=== PATIENT | female | born 1940 | race Caucasian/White ===

== ENCOUNTER → 2016-12-26 | Outpatient (CLI) | payer OTHER ==
[~2016-12-26] MED LIST: CGN1; CRG40; EZET10TA38; FSM70; LOXAPINE SUCCINATE; SERT-234; TEMA15CA4; XNX25
== END | disposition home or self-care (01) ==
LOC: C.LABPVFM 11:19
PROVIDERS: ATTEND Family Medicine
DX: L72.9 Follicular cyst of the skin and subcutaneous tissue, unspecified (principal)

== ENCOUNTER → 2017-01-23 | Outpatient (CLI) | payer OTHER ==
--- NOTE | 2017-01-23 09:29 | DIAGNOSTIC IMAGING REPORT ---
RIGHT KNEE 3 VIEWS HISTORY: M25.562 Knee pain, leftR76.8 LANCE [id number] Generalized osteo Right COMPARISON: None. FINDINGS: There is no fracture or dislocation. Small knee effusion. Severe cartilage space narrowing with [id number] articulation at the medial compartment. There is also mild patellofemoral osteoarthritis. The bones are osteopenic. Possible 1 cm subchondral lucency within the medial aspect of the medial femoral condyle. No radiopaque foreign bodies. IMPRESSION: 1. Small knee effusion. 2. Severe osteoarthritis at the medial compartment with [id number] reticulation. 3. Possible 1 cm subchondral lucency within the medial femoral condyle. This raises the possibility of spontaneous osteonecrosis or an osteochondral defect. This could be confirmed with follow-up nonemergent MRI if clinically warranted. Electronically signed by: Last Marin M.D. 01/23/2017 9:28 AM Dictated Date/Time: 01/23/2017 9:25 AM
--- NOTE | 2017-01-24 11:34 | CODING QUERY NO DIAGNOSIS ---
TREATMENT RENDERED WITHOUT A DIAGNOSIS Dr. Robin, To promote full compliance with coding requirements relating to patient care, physician participation is requested in all cases of manager harbor uncertainty. Please assist us with providing a diagnosis/symptom for the test(s) below: A diagnosis/symptom was not documented on your Order. A valid diagnosis/symptom is required to bill all insurances. Please remember that we are unable to code a diagnosis of rule out, probable, possible, questionable, or suspected. Tests that require a diagnosis: * KNEE X-RAY 3 VIEWS DIAGNOSIS: DATE OF SERVICE: 01/23/17 Please clarify DX. Order says Left Knee pain but X-Ray is for Right Knee. Provider Signature: Date: Thank you Luc Snyder [facility] Information Management Once completed, please kindly fax back to [phone] For questions please call [phone]
[2017-01-26 02:56] LABS: ANTI-CENTROMERE AB <1.0 NEG AI (<1.0 NEG); ANTI-SS-A 3.2 POS AI (<1.0 NEG); ANTI-SS-B <1.0 NEG AI (<1.0 NEG); DNA ds CRITHIDIA NEGATIVE (NEGATIVE); Sm Antibody <1.0 NEG AI (<1.0 NEG)
== END | disposition home or self-care (01) ==
LOC: C.RAD1850 09:11
PROVIDERS: ATTEND Internal Medicine Rheumatology
DX: M17.11 Unilateral primary osteoarthritis, right knee (principal); M25.561 Pain in right knee; M25.562 Pain in left knee; R76.8 Other specified abnormal immunological findings in serum; M15.9 Polyosteoarthritis, unspecified; R70.0 Elevated erythrocyte sedimentation rate

== ENCOUNTER → 2017-02-25 | Outpatient (CLI) | payer OTHER ==
--- NOTE | 2017-02-25 14:55 | MAMMOGRAPHY REPORT ---
BILATERAL DIGITAL SCREENING MAMMOGRAM WITH CAD: 02/25/2017 CLINICAL HISTORY: Routine screening. Patient has no complaints. TECHNIQUE: Bilateral CC and MLO views were obtained. Current study was also evaluated with a Compute r Aided Detection (CAD) system. COMPARISON: Comparison is made to exams dated: 02/22/2016 mammogram, 02/18/2015 mammogram, 02/17/2014 m ammogram, 01/06/2013 mammogram, 06/14/2011 mammogram, and 06/13/2010 mammogram - [facility] enter. BREAST COMPOSITION: The tissue of both breasts is heterogeneously dense, which may obscure small mas ses. FINDINGS: There are scattered and grouped round and punctate microcalcifications, stable in each [address]. No new suspicious mass, architectural distortion or cluster of microcalcifications is seen. IMPRESSION: ACR BI-RADS CATEGORY 1: NEGATIVE There is no mammographic evidence of malignancy. A 1 year screening mammogram is recommended. The pa tient will receive written notification of the results. Approximately 10% of breast cancers are not detected with mammography. A negative mammographic report should not delay biopsy if a clinically suggestive mass is present. Jen Mantilla M.D. ay/:02/25/2017 11:49:12 Wood Car Builder: Gabrielle Kong RT(R)(M), [facility] letter sent: Normal 1/2 BI-RADS Code: ACR BI-RADS Category 1: Negative
== END | disposition home or self-care (01) ==
LOC: C.MAMM 09:02
PROVIDERS: ATTEND Family Medicine
DX: Z12.31 Encounter for screening mammogram for malignant neoplasm of breast (principal)

== ENCOUNTER → 2017-09-17 | Day surgery (SDC) | payer OTHER ==
[2017-09-10 09:46] VITALS: Ht 162.6 cm; Wt 77.3 kg
[~2017-09-17] VITALS: Ht 162.6 cm; Wt 77.3 kg
[~2017-09-17] MED LIST changes: +ASPI81TA28 PO; +ATEN50TA8 PO; +ATOR-22 PO; +ATROPINE SULFATE 0.1 MG/ML 5ML SYR IV PRN; +BENZ0.5T28 PO; +BUPIVACAINE 0.5 % 5 MG/1 ML PF 10ML VIAL ONE; +CEFAZOLIN 1000MG IV PUSH 5 ML IV SCH; -CGN1; -CRG40; -EZET10TA38; +FENTANYL CITRATE INJ 50 MCG/1 ML 2 ML VIAL ONE; -FSM70; +LACTATED RINGER'S 1000ML 1,000 ML IV SCH; +LIDOCAINE HCL 1% 20 ML VIAL ONE; +LOXA10CA PO; +LOXA25CA PO; -LOXAPINE SUCCINATE; +MIDAZOLAM HCL 1 MG/ML 2ML VIAL ONE; +ONDANSETRON INJ 2 MG/ML 2 ML VIAL IV PRN; +OXYCODONE/ACETAMINOPHEN 5-325 TAB PO PRN; -SERT-234; +SERT-234 PO; +SODIUM CHLORIDE 0.9% 1000ML 1,000 ML IV SCH; -TEMA15CA4; +TRAM-10 PO; -XNX25; +XNX25 PO
--- NOTE | 2017-09-17 07:48 | History & Physical Bridge - SC ---
H&P Re-Evaluation Bridge Note: I have examined the patient, reviewed the History & Physical and in the interval since the performance of the History & Physical I have noted the following changes of clinical significance: No changes noted
--- NOTE | 2017-09-17 08:42 | [facility] Post Operative Brief Note ---
Immediate Operative Summary Operative Date Sep 17, 2017. Pre-Operative Diagnosis Right Long Finger Ganglion of Joint, Pain Post-Operative Diagnosis same as pre op Procedure(s) Performed Right Long Finger Cyst Excision Surgeon Dr Dyson Anhydrous Ammonia Production Supervisor Surgeon(s) MOHIT Cheatham Estimated Blood Loss 0ml Findings ABOVE Specimens none Anesthesia LOCAL IV SEDATION Complication(s) None Disposition
[2017-09-17 08:45] VITALS: TEMP 36.7
--- NOTE | 2017-09-17 08:45 | Discharge Instructions-SurgCtr ---
Discharge Instructions Date of Service Sep 17, 2017. Visit Reason for Visit: Right Long Finger Ganglion Of Joint, Pain Discharge Discharge Diagnosis / Problem: SAME ABOVE Discharge Goals Goal(s): Decrease discomfort, Improve function Activity Recommendations Activity Limitations: as noted below Lifting Limitations: gradually increase as tolerated, until after follow-up appointment Shower/Bathe: tomorrow Anesthesia . Post Anesthesia Instructions: If you have had General Anesthesia or IV Sedation: * Do not drive today. * Resume driving when surgeon permits. * Do not make important decisions or sign legal documents today. * Call surgeon for: 1. Temperature elevations greater than 101 degrees F. 2. Uncontrollable pain. 3. Excessive bleeding. 4. Persistent nausea and vomiting. 5. Medication intolerance (nausea, vomiting or rash). * For nausea and vomiting use only clear liquids such as: tea, soda, bouillon until nausea subsides, then gradually increase diet as tolerated. * If you have any concerns or questions, call your surgeon's office. If physician is unavailable and it is an emergency, call 911 or go to the nearest emergency room. . Instructions / Follow-Up Instructions / Follow-Up MEDICATIONS: * Resume previous medications unless instructed otherwise by your surgeon. * Always take pain medication on a full stomach or with food to avoid upset stomach. * Do not drink alcohol or drive while taking narcotics. * Ibuprofen or Tylenol may be taken if narcotic not needed. SPECIAL CARE INSTRUCTIONS: __ None _X_ Keep extremity elevated and iced x 48 hours; apply ice 20-30 minutes 8-10 times/day. May remove at night. __ Sling __24 hrs/day __ Remove at night __ Shoulder Immobilizer __ 24 hrs/day __ Remove at night _X_ Dressing __ Maintain until seen in office, may shower with plastic over site _X_ Remove dressings in 24-48 hours and then may shower _X_ Cover incisions with band-aids after showering __ Do not remove steri-strips Call physician if chills or temperature rises above 102 degrees or pain unrelieved by prescribed pain medications at . . Diet Recommendations Home Diet: resume previous diet Procedures Procedures Performed: Right Long Finger Cyst Excision Pending Studies Studies pending at discharge: no Medical Emergencies . Who to Call and When: Medical Emergencies: If at any time you feel your situation is an emergency, please call 911 immediately. . Non-Emergent Contact Non-Emergency issues call your: Primary Care Provider . . "Provider Documentation" section prepared by Ricardo Rehman. .
--- NOTE | 2017-09-17 09:00 | OPERATIVE REPORT ---
DATE OF OPERATION: 09/17/2017 PREOPERATIVE DIAGNOSIS: Painful large mucous cyst, dorsal aspect DIP joint, right long finger. POSTOPERATIVE DIAGNOSIS: Same. PROCEDURE: Removal mucocyst DIP joint, right long finger. SURGEON: Og Dyson MD. AIRCRAFT RESTORER: Ricardo Rehman PA-C. ANESTHESIOLOGIST: Luc Jerry MD. ANESTHESIA: Local with IV sedation. DRAINS: None. COMPLICATIONS: None. CONDITION: The patient tolerated the procedure well and returned to the recovery room in apparent satisfactory condition. INDICATIONS FOR SURGERY: Jodee is a 77-year-old female who has had pain and discomfort secondary to a mucous cyst on the dorsal aspect of the DIP joint of her right long finger. It is pretty large in size. The skin was thin. We talked about taking and removing it and possibly recurrence and then problems with wound closure because of the consistency of her skin. DESCRIPTION OF PROCEDURE: The patient was taken to the OR at which time she was placed supine on the operating table, given IV sedation. A digital block in the finger was done by myself. Then wee prepped and draped the hand in usual sterile fashion for surgery. We used a Ryder drain for a tourniquet and exsanguinated the finger. We then made an oblique incision over the cyst with loupe magnification. Immediately we had fluid come out. Once we got all that out, we then removed the cyst in whole. It was pretty good size, about the size of a half of a peanut. We did cut back some of the skin, irrigated it nicely and then we went ahead and closed it with interrupted 4-0 nylon sutures. She was placed in a sterile dressing of Xeroform, 2 x 2, and a Coban and returned to recovery in apparent satisfactory condition. I attest to the content of the Intraoperative Record and any orders documented therein. Any exception s are noted below.
--- NOTE | 2017-09-17 09:07 | Anesthesia Progress Nt - [facility] ---
Anesthesia Post Op Note Date & Time Sep 17, 2017 at 09:07 Vital Signs Pain Intensity: 0 Vital Signs Past 12 Hours Date Time Temp Pulse Resp B/P (MAP) Pulse Ox O2 Delivery O2 Flow Rate FiO2 09/17/17 08:45 36.7 67 18 117/72 (87) 93 Room Air 09/17/17 06:58 36.5 66 16 133/91 (105) 96 Room Air Notes Mental Status: alert / awake / arousable, participated in evaluation Pt Amnestic to Procedure: Yes Nausea / Vomiting: adequately controlled Pain: adequately controlled Airway Patency, RR, SpO2: stable & adequate BP & HR: stable & adequate Hydration State: stable & adequate Anesthetic Complications: no major complications apparent
[2017-09-17 09:21] VITALS: BP 144/83; PULSE 51; O2SAT 96
== END | disposition home or self-care (01) ==
LOC: X.SURG 06:43
PROVIDERS: ATTEND Orthopaedic Surgery
DX: M67.441 Ganglion, right hand (principal); I10 Essential (primary) hypertension; E78.00 Pure hypercholesterolemia, unspecified; F20.9 Schizophrenia, unspecified

== ENCOUNTER → 2017-12-18 | Outpatient (CLI) | payer OTHER ==
[~2017-12-18] MED LIST changes: -ATROPINE SULFATE 0.1 MG/ML 5ML SYR IV PRN; -BUPIVACAINE 0.5 % 5 MG/1 ML PF 10ML VIAL ONE; -CEFAZOLIN 1000MG IV PUSH 5 ML IV SCH; -FENTANYL CITRATE INJ 50 MCG/1 ML 2 ML VIAL ONE; -LACTATED RINGER'S 1000ML 1,000 ML IV SCH; -LIDOCAINE HCL 1% 20 ML VIAL ONE; -MIDAZOLAM HCL 1 MG/ML 2ML VIAL ONE; -ONDANSETRON INJ 2 MG/ML 2 ML VIAL IV PRN; -OXYCODONE/ACETAMINOPHEN 5-325 TAB PO PRN; -SODIUM CHLORIDE 0.9% 1000ML 1,000 ML IV SCH
[2017-12-18 13:03] LABS: HEMOGLOBIN 13.5 g/dL (12.0-16.0); MEAN CELL VOLUME 91.9 fL (80-100); MEAN CORPUSCULAR HEMOGLOBIN 29.5 pg (25-34); MEAN CORPUSCULAR HGB CONC 32.1 g/dl (32-36); MEAN PLATELET VOLUME 14.2 fL (7.4-10.4); PLATELET COUNT 259 K/uL (130-400); RED CELL DISTRIBUTION WIDTH CV 14.9 % (11.5-14.5); RED CELL DISTRIBUTION WIDTH SD 50.2 fL (36.4-46.3); WHITE BLOOD COUNT 6.32 K/uL (4.8-10.8)
[2017-12-18 13:48] LABS: ALBUMIN 3.9 gm/dl (3.4-5.0); ALT/SGPT 29 U/L (12-78); BLOOD UREA NITROGEN 14 mg/dl (7-18); CALCIUM 8.6 mg/dl (8.5-10.1); CARBON DIOXIDE 31 mmol/L (21-32); CHOLESTEROL 226 mg/dl (0-200); CREATININE 0.77 mg/dl (0.60-1.20); GLUCOSE 101 mg/dl (70-99); SODIUM 136 mmol/L (136-145)
[2017-12-18 13:51] LABS: ALKALINE PHOSPHATASE 91 U/L (45-117); AST/SGOT 25 U/L (15-37); LDL CHOLESTEROL CALCULATED 119 mg/dl; TOTAL PROTEIN 7.9 gm/dl (6.4-8.2)
== END | disposition home or self-care (01) ==
LOC: C.LABPVFM 08:33
PROVIDERS: ATTEND Family Medicine
DX: M25.561 Pain in right knee (principal); M25.562 Pain in left knee

== ENCOUNTER → 2017-12-24 | Outpatient (CLI) | payer OTHER | END | disposition home or self-care (01) | LOC: C.MAMM 08:37 | PROVIDERS: ATTEND Family Medicine | DX: M15.9 Polyosteoarthritis, unspecified (principal); Z78.0 Asymptomatic menopausal state ==

== ENCOUNTER → 2018-01-02 | Outpatient (CLI) | payer OTHER ==
--- NOTE | 2018-01-02 14:44 | DIAGNOSTIC IMAGING REPORT ---
CERVICAL SPINE 2 OR 3 VIEWS CLINICAL HISTORY: Musculoskeletal disorder involving upper trapezius muscle COMPARISON STUDY: No previous studies for comparison. FINDINGS: Alignment of the cervical spine is anatomic. No fracture or suspicious lesion is present. There is moderate disc space narrowing with osteophytosis at C4-C5 and C5-C6. Moderate multilevel facet arthrosis is present. IMPRESSION: 1. No cervical spine fracture or subluxation. 2. Moderate degenerative disc disease at C4-C5 and C5-C6. 3. Moderate multilevel facet arthrosis. Electronically signed by: Jose Daniel Esquivel M.D. 01/02/2018 2:43 PM Dictated Date/Time: 01/02/2018 2:42 PM
--- NOTE | 2018-01-02 14:45 | DIAGNOSTIC IMAGING REPORT ---
THORACIC SPINE 3 VIEWS CLINICAL HISTORY: Musculoskeletal pain involving left trapezius. FINDINGS: AP, lateral, and swimmer's views of the thoracic spine are correlated with lateral chest x-ray dated 06/04/2013. The skeletal structures are osteopenic. There is no radiographic evidence of fracture or malalignment involving the thoracic spine. Vertebral body height and alignment are maintained. Anterior osteophytes are seen throughout. Mild multilevel degenerative disc space narrowing is noted. The transverse processes and pedicles are grossly intact as seen on the frontal view. The lung parenchyma is clear as imaged. IMPRESSION: Osteopenia and spondylotic change as above. No acute bony abnormality is seen involving the thoracic spine. Electronically signed by: Jalen Mitchell M.D. 01/02/2018 2:44 PM Dictated Date/Time: 01/02/2018 2:43 PM
== END ==
LOC: C.RADBC 14:07
PROVIDERS: ATTEND Family Medicine
DX: M53.82 Other specified dorsopathies, cervical region (principal)

== ENCOUNTER → 2018-01-16 | Outpatient (CLI) | payer OTHER ==
[~2018-01-16] MED LIST changes: +HYDR-4383 PO
== END | disposition home or self-care (01) ==
LOC: C.LABBC 09:09
PROVIDERS: ATTEND Internal Medicine Rheumatology
DX: M25.562 Pain in left knee (principal); R76.8 Other specified abnormal immunological findings in serum; R70.0 Elevated erythrocyte sedimentation rate

== ENCOUNTER → 2018-05-02 | Outpatient (CLI) | payer OTHER ==
[~2018-05-02] MED LIST changes: +ALPR0.254 PO; -TRAM-10 PO; -XNX25 PO
[2018-05-02 14:02] LABS: BLOOD UREA NITROGEN 13 mg/dl (7-18); CALCIUM 8.9 mg/dl (8.5-10.1); CARBON DIOXIDE 27 mmol/L (21-32); CHOLESTEROL 204 mg/dl (0-200); CREATININE 0.71 mg/dl (0.60-1.20); GLUCOSE 93 mg/dl (70-99); LDL CHOLESTEROL CALCULATED 98 mg/dl; POTASSIUM 4.1 mmol/L (3.5-5.1); SODIUM 138 mmol/L (136-145)
== END | disposition home or self-care (01) ==
LOC: C.LABBC 10:31
PROVIDERS: ATTEND Family Medicine
DX: E78.5 Hyperlipidemia, unspecified (principal)

== ENCOUNTER 2021-12-15 09:32 | Observation (INO) ==
--- NOTE | 2021-11-13 08:36 | PAT Medication Instructions ---
Medication Instructions Date of Service November 13, 2021 Home Medications Medication Instructions Recorded benztropine 1 mg tablet 0.5 mg PO BID #60 tab 06/08/19 Wheeled Walker #1 ea 08/08/20 benztropine 1 mg tablet 0.5 mg PO BID acyclovir 400 mg tablet 400 mg PO 5XD PRN alprazolam 0.25 mg tablet 0.25 mg PO DAILY PRN atenolol 50 mg tablet 50 mg PO QAM atorvastatin 20 mg tablet (Lipitor) 20 mg PO HS cholecalciferol (vitamin D3) 25 mcg (1,000 unit) chewable tablet (Vitamin D3) 25 mcg PO QAM loxapine succinate 10 mg capsule 10 mg PO HS loxapine succinate 25 mg capsule 25 mg PO HS meloxicam 15 mg tablet (Mobic) 15 mg PO QAM multivitamin 1 tab PO QAM sertraline 100 mg tablet 100 - 150 mg PO DIRECTED vitamin E 200 unit capsule 200 unit PO QAM Continue as directed sertraline 100 mg tablet 100 - 150 mg PO DIRECTED ASK your surgeon for instructions meloxicam 15 mg tablet (Mobic) 15 mg PO QAM STOP taking 2 weeks before surgery vitamin E 200 unit capsule 200 unit PO QAM DO NOT take the morning of surgery cholecalciferol (vitamin D3) 25 mcg (1,000 unit) chewable tablet (Vitamin D3) 25 mcg PO QAM multivitamin 1 tab PO QAM Take morning of surgery With a small sip of water, OTHERWISE NOTHING TO EAT OR DRINK AFTER MIDNIGHT: benztropine 1 mg tablet 0.5 mg PO BID acyclovir 400 mg tablet 400 mg PO 5XD PRN (if needed) alprazolam 0.25 mg tablet 0.25 mg PO DAILY PRN (if needed) atenolol 50 mg tablet 50 mg PO QAM Take evening before surgery benztropine 1 mg tablet 0.5 mg PO BID acyclovir 400 mg tablet 400 mg PO 5XD PRN (if needed) alprazolam 0.25 mg tablet 0.25 mg PO DAILY PRN (if needed) atorvastatin 20 mg tablet (Lipitor) 20 mg PO HS loxapine succinate 10 mg capsule 10 mg PO HS loxapine succinate 25 mg capsule 25 mg PO HS Other Notes If you have any questions please call us at [phone] or [phone] or [phone] or [phone]
--- NOTE | 2021-11-14 10:54 | Anesthesiology Consultation ---
Date of Service November 14, 2021 Assessment & Plan (1) Encounter for pre-operative examination: - untreated breast cancer by pt decision. Dx 2018 upon biopsy, pt declined any additional evaluation/intervention-no further surgery completed, no chemo or XRT. Case discussed with Dr. Solorzano who advised nothing further to be completed prior to surgery, consideration for GA vs neuraxial anesthesia given unknown disease state. - tremors: upper extremities bilat R>L. - COVID screening: Per assessment on 11/14/2021: Travel screen negative, no known COVID-19 positive contacts or current COVID-19 related symptoms in past 2 weeks. Patient vaccinated. Surgeon arranging preop COVID testing, scheduled 12/13/2021. Awaiting results. Chart Review Chart Review: Acceptable Risk for Surgery and Patient seen in Pre Admission Testing Teaching & Discussion Pre-Anesthesia Teaching/Discussion Notes: Instructed NPO after midnight before surgery, except medications with 15 cc of water. Medication instructions provided according to the PAT guidelines. History Surgery Operation Date: 12/15/21 07:00 Proposed Procedures p Left Total Knee Replacement - Ricardo Glasgow, Height/Weight Height: 5 ft 4 in Weight: 84.6 kg Allergies Allergy/AdvReac Type Severity Reaction Status Date / Time No Known Allergies Allergy Verified 11/10/21 13:45 Medications Home Medications Medication Instructions Recorded Confirmed Last Taken varicella-zoster gE vac,2 of 2 50 50 mcg IM UD ea 06/04/19 11/10/21 Unknown mcg IM suspension (Shingrix gE Antigen Component) benztropine 1 mg tablet 0.5 mg PO BID #60 tab 06/08/19 11/10/21 Unknown Wheeled Walker #1 ea 08/08/20 11/10/21 Unknown acyclovir 400 mg tablet 400 mg PO 5XD PRN tab 07/27/21 11/10/21 Unknown alprazolam 0.25 mg tablet 0.25 mg PO DAILY PRN 11/10/21 11/10/21 Unknown atenolol 50 mg tablet 50 mg PO QAM 11/10/21 11/10/21 Unknown atorvastatin 20 mg tablet (Lipitor) 20 mg PO HS 11/10/21 11/10/21 Unknown cholecalciferol (vitamin D3) 25 25 mcg PO QAM 11/10/21 11/10/21 Unknown mcg (1,000 unit) chewable tablet (Vitamin D3) loxapine succinate 10 mg capsule 10 mg PO HS 11/10/21 11/10/21 Unknown loxapine succinate 25 mg capsule 25 mg PO HS 11/10/21 11/10/21 Unknown meloxicam 15 mg tablet (Mobic) 15 mg PO QAM 11/10/21 11/10/21 Unknown multivitamin 1 tab PO QAM 11/10/21 11/10/21 Unknown sertraline 100 mg tablet 100 - 150 mg PO DIRECTED 11/10/21 11/10/21 Unknown vitamin E 200 unit capsule 200 unit PO QAM 11/10/21 11/10/21 Unknown Past Medical History Medical History (Updated 11/14/21 @ 16:17 by Sydnee Landry PA-C) Anxiety Breast cancer May 2018 > pt elected no treatment Hyperlipidemia Hypertension controlled, stable per pt Osteoarthritis Schizophrenia Tardive dyskinesia Tremor Patient denies h/o stroke, seizures, heart attack, heart failure, DM, blood clots or blood transfusions. Exercise / Class Metabolic Activity III < 4 Walking/Shop/Light housework (ambulates with rolling walker, denies CP or SOB) Past Family History Family History Sister Breast cancer Aunt Breast cancer Mother Stroke Denies family history of Colon cancer Ovarian cancer Prostate cancer Myocardial infarction Past Surgical History Surgical History (Updated 11/14/21 @ 11:34 by Sydnee Landry PA-C) H/O removal of cyst of middle finger of right hand History of tooth extraction Hx of breast biopsy left > cancer > 2018 S/P cataract surgery bilat Past Anesthesia History No Hx of Anesthesia Complications and No Family Hx of Anesthesia Complications History of PONV No Hx of PONV and Hx of Motion Sickness Social History Smoking Status: Never smoker Do You Dip or Chew Tobacco: No Hx Alcohol Use: No Hx Substance Use: No substance use type: does not use Review of Systems Patient denies chest pain, shortness of breath, dyspnea on exertion, snoring, witnessed apneas, reflux, fever, chills, cough, wheezing, or palpitations. Physical Exam Vital Signs Vitals BP 154/74 P 63 TEMP 98.1 SP02 97% on RA RESP 17 Physical Full cervical extension range of motion without pain Full TMJ range of motion TMD 3.5 finger breaths Mallampati Score 2 Dentition: intact, partial front upper; denies chipped or loose teeth Lungs: normal respiratory effort. Clear throughout to auscultation, no adventitious breath sounds Cardiac: regular rate and rhythm, no murmurs noted Carotid arteries: negative bruit bilat Extremities: no distal extremity edema Neuro: tremor upper extremities bilat, R>L Lab Results Anesthesia Preop Results Results Anesthesia Widget: WBC 5.91 K/uL (4.8-10.8) 11/14/21 Hgb 11.7 g/dL (12.0-16.0) L 11/14/21 Hct 36.6 % (37-47) L 11/14/21 Plt 259 K/uL (130-400) 11/14/21 Na 137 mmol/L (136-145) 11/14/21 K 4.3 mmol/L (3.5-5.1) 11/14/21 Cl 104 mmol/L (98-107) 11/14/21 CO2 25 mmol/L (21-32) 11/14/21 BUN 20 mg/dl (6-23) 11/14/21 Creat 0.65 mg/dl (0.6-1.2) 11/14/21 Glucose Level 95 mg/dl (70-99(Fasting)) 11/14/21 PT 10.7 Seconds (9.0-12.0) 11/14/21 PTT 26.5 Seconds (21.0-31.0) 11/14/21 INR 1.0 (0.9-1.1) 11/14/21 Blood Type A Positive 11/14/21 Antibody Screen NEGATIVE 11/14/21 Testing Electrocardiogram Date: 11/14/21 NSR, rate 63 bpm RBBB Chest X-Ray Date: 11/14/21 FINDINGS: No pleural effusions. No pneumothorax. The heart is normal in size. Old, healed right-sided rib fractures. No focal lung consolidations to suggest pneumonia. No evidence for pulmonary edema. Small linear scarlike density noted within the lingula. IMPRESSION: No acute process.
--- NOTE | 2021-12-14 16:22 | History & Physical Report ---
Date of Service December 14, 2021 Assessment & Plan (1) Osteoarthritis of left knee: We will proceed with a left total knee arthroplasty. Postoperatively she will be kept overnight in the hospital for postop medical management. She will be given aspirin for DVT prophylaxis. She plans to have case management set up home health upon discharge. History of Present Illness Chief Complaint: Osteoarthritis of the left knee. Primary Care Provider: Kay Soliz MD Jodee is a pleasant 81-year-old female who has been dealing with chronic increas ing left knee pain. X-rays and clinical examination have been diagnostic for advanced osteoarthritis of the left knee. After failing conservative treatment, she has elected to proceed with a left total knee arthroplasty. Allergies Allergy/AdvReac Type Severity Reaction Status Date / Time No Known Allergies Allergy Verified 11/10/21 13:45 Home Medications Medication Instructions Recorded Confirmed Type varicella-zoster gE vac,2 of 2 50 50 mcg IM UD ea 06/04/19 11/10/21 History mcg IM suspension (Shingrix gE Antigen Component) benztropine 1 mg tablet 0.5 mg PO BID #60 tab 06/08/19 11/10/21 Rx Wheeled Walker #1 ea 08/08/20 11/10/21 Rx acyclovir 400 mg tablet 400 mg PO 5XD PRN tab 07/27/21 11/10/21 History alprazolam 0.25 mg tablet 0.25 mg PO DAILY PRN 11/10/21 11/10/21 History atenolol 50 mg tablet 50 mg PO QAM 11/10/21 11/10/21 History atorvastatin 20 mg tablet (Lipitor) 20 mg PO HS 11/10/21 11/10/21 History cholecalciferol (vitamin D3) 25 25 mcg PO QAM 11/10/21 11/10/21 History mcg (1,000 unit) chewable tablet (Vitamin D3) loxapine succinate 10 mg capsule 10 mg PO HS 11/10/21 11/10/21 History loxapine succinate 25 mg capsule 25 mg PO HS 11/10/21 11/10/21 History meloxicam 15 mg tablet (Mobic) 15 mg PO QAM 11/10/21 11/10/21 History multivitamin 1 tab PO QAM 11/10/21 11/10/21 History sertraline 100 mg tablet 100 - 150 mg PO DIRECTED 11/10/21 11/10/21 History vitamin E 200 unit capsule 200 unit PO QAM 11/10/21 11/10/21 History oxycodone-acetaminophen 5 mg-325 1 tab PO Q6H PRN #30 tab 12/13/21 Rx mg tablet (Percocet) Past Med/Surg History Medical History Anxiety Breast cancer May 2018 > pt elected no treatment Hyperlipidemia Hypertension controlled, stable per pt Osteoarthritis Schizophrenia Tardive dyskinesia Tremor Surgical History H/O removal of cyst of middle finger of right hand History of tooth extraction Hx of breast biopsy left > cancer > 2018 S/P cataract surgery bilat Family History Sister Breast cancer Aunt Breast cancer Mother Stroke Denies family history of Colon cancer Ovarian cancer Prostate cancer Myocardial infarction Social History Smoking Status: Never smoker Second Hand Exposure: Yes (father smoked); Hx Alcohol Use: No Hx Substance Use: No Preferred Language: Kuwaiti Communication Ability: Effective Visual Impairment: No Limitations Hearing Ability: Normal Financial Internship Required: No Beliefs That Will Affect Care: None marital status: Current Living Situation: Spouse current occupational status: retired current occupation: used to be a Homemaker Feels Safe at Home: Yes Childhood Exposure to Second-Hand Smoke: Yes Dental Care, Regularly: Yes Physical Activity Frequency: Does not Exercise Seatbelt Use: always Sunscreen Use: Yes Assistive Devices: Glasses and Walker Review of Systems All systems reviewed & are unremarkable except as noted in HPI & below. Physical Exam On physical examination of the left knee, she has good motion of 0 to 120 degrees. No instability. Significant tenderness palpation of the distal medial femoral condyle and over the medial joint line. She ambulates with a walker. Constitutional WD/WN, vitals as above Eyes PERRL, conjunctivae normal, anicteric sclerae ENMT external ear and nose normal, oropharynx normal Neck trachea midline, no thyromegaly Respiratory normal respiratory effort Cardiovascular RRR, no murmur, no edema Gastrointestinal (Abdomen) normal bowel sounds, soft, nontender, no hepatosplenomegaly Psychiatric A+Ox3, euthymic affect Results & Data Results & Data Laboratory Results . Diagnostic Findings X-rays of the left knee show advanced osteoarthritis with joint space narrowing, osteophyte formation, and juui-br-wmbc articulation. PG Care Time/CCT Total # of Minutes Spent Total Time Spent with Patient: Total time spent is greater than 50% in coordination of care (as documented) at patient's floor/unit and/or counseling patient: Coding Level of Care Code None Diagnoses Osteoarthritis of left knee M17.12
[~2021-12-15 09:32] MED LIST changes: +ACETAMINOPHEN 500 MG TAB PO SCH; -ALPR0.254 PO; -ASPI81TA28 PO; -ATEN50TA8 PO; -ATOR-22 PO; -BENZ0.5T28 PO; +BUPIVACAINE 0.5 % 5 MG/1 ML PF 10ML VIAL ONE; +FAMOTIDINE 20 MG TAB PO SCH; +GABAPENTIN 300 MG CAP PO SCH; -HYDR-4383 PO; +Ketorolac (*for OR use only*) 30 MG, dexAMETHasone 4 MG, KETAMINE HCL (**OR use only) 1... INFIL SCH; -LOXA10CA PO; -LOXA25CA PO; +LR 15ML/HR IV SCH; +LR 60ML/HR IV SCH; -SERT-234 PO; +TRANEXAMIC ACID 1,000 MG **IV Intra-op IV SCH; +ceFAZolin 2000MG 2,000 MG/15 ML SYR IV SCH
[2021-12-15] MEDS ORDERED: LIDOCAINE 2% 2 ML VIAL/AMP(20MG/ML) INFIL ONE (11:23)
[2021-12-15] MEDS ORDERED: PROPOFOL IV EMULSION 10 MG/ML 20 ML VIAL IV ONE (11:23)
[2021-12-15] MEDS ORDERED: MIDAZOLAM HCL 1 MG/ML 2ML VIAL ONE (11:23)
[2021-12-15] MEDS ORDERED: ONDANSETRON INJ 2 MG/ML 2 ML VIAL ONE (11:23)
--- NOTE | 2021-12-15 11:43 | History & Physical Bridge Note ---
Date of Service December 15, 2021 History & Physical Bridge Note I have examined the patient, reviewed the History & Physical and in the interval since the performance of the History & Physical I have noted the following changes of clinical significance: no changes noted
[2021-12-15] MEDS ORDERED: ORTHO JOINT ANESTHETIC ONE (12:15)
[2021-12-15] MEDS ORDERED: TRANEXAMIC ACID / 0.7% NACL 1,000 MG/100 ML BAG IV STA (12:31)
[2021-12-15] MEDS ORDERED: ePHEDrine sulfate 50 MG/ML AMP IV PRN (12:53)
[2021-12-15] MEDS ORDERED: ATROPINE SULFATE 0.1 MG/ML 10ML SYR IV PRN (12:53)
[2021-12-15] MEDS ORDERED: ONDANSETRON INJ 2 MG/ML 2 ML VIAL IV PRN ×2 (12:53→14:51)
[2021-12-15] MEDS ORDERED: fentaNYL citrate 100 MCG/2 ML VIAL IV PRN (12:53)
--- NOTE | 2021-12-15 14:05 | Operative Report ---
PG Post Operative Report Pre & Post Diagnosis Operation Date: 12/15/21 12:15 Pre-Op Diagnosis: Left Knee Osteoarthritis Post-Op Diagnosis: Left Knee Osteoarthritis I identified the patient and participated in the time-out.: Yes Procedure Operation Date: 12/15/21 12:15 Actual Procedures p Left Total Knee Replacement(Left) - Ricardo Glasgow DO Surgeon Ricardo Glasgow DO Tallow Refiner Ricardo Rehman PAC Estimated Blood Loss 10 Findings Consistent with Post-Op Diagnosis Specimens Left femoral and tibial bone Complications none Disposition Disposition: Recovery Room Indications Jodee is a pleasant 81-year-old female has been doing chronic increasing left knee pain. X-rays and clinical examination have been diagnostic for advanced arthritis of the left knee. After failing conservative treatment, she elected proceed with a left total knee arthroplasty. Description of Procedure Implants used: I used a Yesenia Persona total knee arthroplasty system with a size 9 narrow femur, D tibia, 28 oval patella, and a size 12 medial congruent polyethylene bearing. All components were cemented in place with Biomet cement. Jodee arrived [facility] for the above procedure. She was seen in the preoperative holding area and the operative extremity was identified and signed. She was given a preoperative antibiotic, TXA, a spinal anesthetic and an adductor nerve block. She was taken back to the operating room and laid on the table in supine position. She was given basic sedation. The operative knee was then prepped and draped in sterile fashion. A timeout was done, and the patient and the operative extremity was properly identified. A midline incision was made directly over the patella. Dissection was taken down to the extensor mechanism. A subvastus arthrotomy was used. The medial retinaculum was released and the fat pad was mostly excised. The knee was flexed and the ACL, PCL, and meniscus were removed. A drill was sent down the center of the femoral canal followed by an intramedullary baldo. Off that baldo a distal femoral cutting block was placed. 9 mm was resected off the distal femur at 5 of valgus. A posterior referencing AP sizing guide was then placed on the distal femur. The femur measured to be a size 9. 2 drill holes were placed in 3 of external rotation. A 4-in-1 cutting block was then impacted into place. Anterior, posterior, and chamfer cuts were then made. The proximal tibia was then exposed. An external tibial alignment guide was placed. A tibial cut guide was then anchored in place and the proximal tibia was then resected. The posterior aspect of the knee was then opened up and any additional meniscus fragments and osteophytes were removed. The tibia measured to be a size D. The tibial plate was then placed in the appropriate rotation and the tibia was drilled and punched. Trial components were then placed. I used a size 12 medial congruent polyethylene insert. The knee was brought through a full range of motion and felt to be stable. The peg holes for the femoral component were then drilled. The patella was then everted and 9 mm was resected off the posterior aspect of the patella. The patella measured to be a size 38 oval. 3 peg holes were then drilled. A trial patella was placed. The knee was once again brought through a full range of motion and felt to be stable. Trial components were then removed. The surrounding soft tissues were injected with 100 cc of an orthopedic pain control cocktail. All components were then cemented into place with Biomet cement. The final polyethylene insert was then snapped into place. Once cement was dry the tourniquet was deflated. Hemostasis was obtained. A dilute betadyne lavage was then done for 3 minutes. The joint was then irrigated with normal saline solution. The subvastus arthrotomy was then closed with #1 Vicryl suture. The skin was closed with 2-0 Vicryl, 3-0V lock suture, and isa. A soft compressive dressing was placed. She was then transferred to a hospital bed and taken to the postanesthesia care unit in stable condition. She tolerated the procedure well. Ricardo Rehman PA-C, was present for the entire procedure. He was critical for patient positioning, prepping, draping, retraction exposure, wound closure and application of sterile dressing. I attest to the content of the Intraoperative Record and any orders documented therein. Any exceptions are noted below.
[2021-12-15] MEDS ORDERED: ePHEDrine sulfate 50 MG/ML AMP ONE (14:14)
--- NOTE | 2021-12-15 14:40 | Anesthesiology Progress Note ---
Date of Service December 15, 2021 Anesthesia Post Procedure Vital Signs Vital Signs: Temp Pulse Pulse Resp BP Pulse Ox 12/15/21 14:35 97.3 F L 61 16 108/68 96 12/15/21 14:25 67 16 118/68 98 12/15/21 14:17 97.0 F L 75 12 106/60 97 12/15/21 10:05 98.1 F 76 18 140/88 95 Transfer of Care Handoff Completed per policy Notes Mental Status: alert / awake / arousable and participated in evaluation Patient Amnestic to Procedure: Yes Nausea / Vomiting: adequately controlled Pain: adequately controlled Airway Patency, RR, SpO2: stable & adequate BP & HR: stable & adequate Hydration State: stable & adequate Neuraxial Anesthesia: was administered and sensory block is resolving Anesthetic Complications: no major complications apparent and Pt Satisfied with anesthetic care
[2021-12-15] MEDS ORDERED: oxyCODONE HCL IR 5 MG TAB (IMMEDIATE RELEASE) PO PRN (14:51)
[2021-12-15] MEDS ORDERED: NALOXONE HCL 0.4 MG/1 ML VIAL/CARP IV PRN (14:51)
[2021-12-15] MEDS ORDERED: ALPRAZolam 0.25 MG TABLET PO PRN (14:51)
[2021-12-15] MEDS ORDERED: MAGNESIUM HYDROXIDE SUSP 30 ML UDC PO PRN (14:51)
[2021-12-15] MEDS ORDERED: bisacodyL 10 MG SUPP PR PRN (14:51)
[2021-12-15] MEDS ORDERED: HYDROmorphone INJ 0.5 MG/0.5 ML SYR IV PRN (14:51)
[2021-12-15] MEDS ORDERED: METOCLOPRAMIDE HCL INJ 5 MG/ML 2 ML VIAL IV PRN (14:51)
--- NOTE | 2021-12-15 15:11 | XRay Report ---
XR knee LT 1 or 2V routine CLINICAL HISTORY: Postoperative evaluation. COMPARISON: Knee radiographs November 14, 2021. FINDINGS: Alignment of the total left knee arthroplasty is anatomic. No periprosthetic fracture or u nexpected radiopaque foreign body. There are skin isa. IMPRESSION: Expected findings following total left knee arthroplasty. ACT 112: Negative or not required by law. Electronically signed by: Jose Daniel Esquivel M.D. 12/15/2021 3:10 PM
[2021-12-15] MEDS: SODIUM CHLORIDE 0.9% 1000ML 1,000 ML IV SCH (15:33)
[2021-12-15] MEDS: KETOROLAC TROMETHAMINE 15 MG/ML VIAL IV SCH ×2 (16:42→22:22)
[2021-12-15] MEDS: ceFAZolin 2000MG 2,000 MG/15 ML SYR IV SCH (20:14)
[2021-12-15] MEDS: BENZTROPINE MESYLATE 0.5 MG TAB PO SCH (20:15)
[2021-12-15] MEDS: ASPIRIN 81 MG ECTAB PO SCH (20:15)
[2021-12-15] MEDS: DOCUSATE SODIUM 100 MG CAP PO SCH (20:15)
[2021-12-15] MEDS ORDERED: SENNA 8.6 MG TAB PO SCH (21:00)
[2021-12-15] MEDS ORDERED: LOXAPINE SUCCINATE 25 MG PO SCH (21:00)
[2021-12-15] MEDS ORDERED: ATORVASTATIN 20 MG TAB PO SCH (21:00)
[2021-12-15] MEDS: ACETAMINOPHEN 500 MG TAB PO SCH (22:22)
[2021-12-16] MEDS: SODIUM CHLORIDE 0.9% 1000ML 1,000 ML IV SCH (03:21)
[2021-12-16] MEDS: KETOROLAC TROMETHAMINE 15 MG/ML VIAL IV SCH ×2 (04:17→10:50)
[2021-12-16] MEDS: ceFAZolin 2000MG 2,000 MG/15 ML SYR IV SCH (04:17)
[2021-12-16] MEDS: ACETAMINOPHEN 500 MG TAB PO SCH (05:54)
[2021-12-16] MEDS ORDERED: dexAMETHasone 4 MG TAB PO SCH (08:00)
--- NOTE | 2021-12-16 08:46 | Orthopedic Progress Note ---
Date of Service December 16, 2021 Assessment & Plan (1) Status post left knee replacement: Overall she is doing fairly well. She is having much pain in the left knee. She will be seen by physical therapy today for ambulation and range of motion exercises. She is on aspirin for DVT prophylaxis. She can be discharged home later today. She will follow-up with orthopedics in 2 weeks. Teresa Ellsworth was seen and examined at bedside this morning. Overall she is doing very well. She is not having much pain in her left knee. She was able to ambulate to the bathroom. She has no complaints. Review of Systems All systems reviewed & are unremarkable except as noted in HPI & below. Physical Exam On physical examination of the left knee, the dressing is clean and dry. Her leg is out full extension. She has active dorsiflexion plantarflexion of her left ankle.. Results & Data Results & Data Laboratory Results . Diagnostic Findings Postoperative x-rays of the left knee show the prosthesis to be in anatomic alignment without any evidence of fracture, dysplasia, or loosening. PG Care Time/CCT Total # of Minutes Spent Total Time Spent with Patient: Total time spent is greater than 50% in coordination of care (as documented) at patient's floor/unit and/or counseling patient: Coding Level of Care Code 11144 Post Operative Follow-Up Diagnoses Status post left knee replacement Z96.652
[2021-12-16] MEDS: ASPIRIN 81 MG ECTAB PO SCH (08:47)
[2021-12-16] MEDS: DOCUSATE SODIUM 100 MG CAP PO SCH (08:47)
--- NOTE | 2021-12-16 08:47 | Discharge Summary ---
Date of Service December 16, 2021 Admission HPI (Per Admitting) Jodee is a pleasant 81-year-old female who has been dealing with chronic increasing left knee pain. X-rays and clinical examination have been diagnostic for advanced osteoarthritis of the left knee. After failing conservative treatment, she has elected to proceed with a left total knee arthroplasty. Admission Exam (Per Admitting) On physical examination of the left knee, she has good motion of 0 to 120 degrees. No instability. Significant tenderness palpation of the distal medial femoral condyle and over the medial joint line. She ambulates with a walker. Principal Diagnosis Same as "Discharge Diagnosis" noted below under Discharge Instructions. Discharge Exam On physical examination of the left knee, the dressing is clean and dry. Her leg is out full extension. She has active dorsiflexion plantarflexion of her left ankle.. Discharge Data Procedures Performed Operation Date: 12/15/21 12:15 Actual Procedures p Left Total Knee Replacement(Left) - Ricardo Glasgow DO Ordered Studies 12/15/21 05:00 US - OR guided needle placemen Routine Hospital Course (1) Status post left knee replacement: On December 15, 2021 Jodee arrived at [facility] and underwent a left knee replacement without complication. She had a spinal anesthetic. Postoperatively she was started on aspirin for DVT prophylaxis and transferred to the general orthopedic floors. Her hospital course was uneventful. On postop day #1 her vital signs were stable and her pain was well controlled. She was able to participate well with physical therapy doing ambulation and range of motion exercises. She was then discharged home. She will follow-up with orthopedics in 2 weeks. PG Care Time/CCT Total # of Minutes Spent Total Time Spent with Patient: Total time spent is greater than 50% in coordination of care (as documented) at patient's floor/unit and/or counseling patient: Discharge Plan Discharge Items Patient Disposition: Home - Home Health Services Reason For Visit: Left Knee Osteoarthritis Discharge Diagnosis: Left knee replacement Activity: As commented below Non-emergency contact: Surgeon Call non-emergency contact if: your wound has increased redness and your wound has increased drainage Follow-up/Referrals: Kay Soliz MD [Primary Care Provider] - Diet: Regular Addtl Attending Provider Instructions: Activity and Therapy Recommendations: * If you are using [facility] then therapy will be provided at your home until they feel you have accomplished all of your goals. * If you are using [facility] then Physical Therapy will be provided until they feel you are ready to start Outpatient Physical Therapy. * If you are not using home therapy then Outpatient Physical Therapy should start about 3-5 days from your day of surgery. Therapy will last about 6-10 weeks * It is important not to put a pillow under your knee when you are relaxing or sleeping. It is just as important to make sure you are getting your knee perfectly straight as it is to regain your knee bend. * You were shown a series of exercises in the hospital. Do these exercises three times each day including the exercises you were shown in physical therapy. * Get up and walk several times each day. For the first four weeks, try not to stand or walk for more than one hour at a time. If you do stand or walk for more than one hour, you will not hurt anything, but your leg will likely swell. * As you feel comfortable, you may change from the walker or crutches to a cane and then to independent walking. Medications: * Narcotic You will likely be sent home from the hospital with a prescription for the narcotic pain medication that worked best throughout your stay. * Aspirin Most patients will be required to take Aspirin 81mg twice a day for 6 weeks after surgery. This is obtained shbl-sni-semldud and a prescription is not necessary. * Other medications may be prescribed for specific circumstances. If you have any questions, please call the office at . * Resume previous home medications unless otherwise instructed TEDs/Elastic Stockings: The white elastic stockings help limit swelling and prevent blood clots from forming in your legs.~ The more you wear them, the more they work. Wear them for six weeks. Dressing Care: The dressing can be changed after physical therapy on postop day #1. Daily dry dressing changes for a few days, especially if the incision is still draining some. If the incision is not draining then you may leave the isa open to air. If there is a little bit of drainage or if the isa are getting stuck on your clothing then cover the incision with a dry dressing. The isa will be removed at your 2 week follow-up appointment. Showering: You may shower 5 days from the day of surgery as long as the incision is no longer draining. You may shower with the isa exposed. Let soapy water run over the isa and pat them dry. Do not scrub or soak the incision. Things To Watch For: * Drainage from the incision site that occurs more than one week after your surgery. * Increased redness at the incision site. * Fever above 102 degrees Fahrenheit. * Unusual chest pain or shortness of breath. * Call [facility] at with any of the above problems Follow-Up Visit: Follow-up with Dr. Glasgow's PA (Ricardo Rehman) 2-3 weeks after your day of surgery. He will remove your isa and answer any questions. If you have any additional questions or concerns, Dr Glasgow is usually in the office at the same time and will be available An appointment was probably scheduled when you signed-up for surgery in the office. If you have any questions call Office Instructions: More detailed instructions as well as Frequently Asked Questions were provided in a folder by our office when you signed-up for surgery. Please review these instructions when you get home. If you have any further questions or concerns, please feel free to call the office at [phone] Pending Studies at Discharge: No Stand-Alone Forms: [facility] Medications and DC Order Prescriptions: New aspirin 81 mg Tablet,Delayed Release (Dr/Ec) 81 mg PO BID 42 Days Qty: 0 RF: 0 Continued oxycodone-acetaminophen [Percocet] 5-325 mg tablet 1 tab PO Q6H PRN (Reason: pain) Qty: 30 RF: 0 benztropine 1 mg tablet 0.5 mg PO BID Qty: 60 RF: 2 (DME) Wheeled Walker Misc See Rx Instructions .MEDSUPPLY Qty: 1 RF: 0 multivitamin Tablet 1 tab PO QAM RF: 0 vitamin E 200 unit Capsule 200 unit PO QAM RF: 0 cholecalciferol (vitamin D3) [Vitamin D3] 25 mcg (1,000 unit) Tablet,Chewable 25 mcg PO QAM RF: 0 atorvastatin [Lipitor] 20 mg tablet 20 mg PO HS RF: 0 loxapine succinate 25 mg capsule 25 mg PO HS RF: 0 meloxicam [Mobic] 15 mg tablet 15 mg PO QAM RF: 0 sertraline 100 mg tablet 100 - 150 mg PO DIRECTED RF: 0 alprazolam 0.25 mg tablet 0.25 mg PO DAILY PRN (Reason: Anxiety) RF: 0 loxapine succinate 10 mg capsule 10 mg PO HS RF: 0 atenolol 50 mg tablet 50 mg PO QAM RF: 0 Discharge Orders: Discharge Order (Routine); Ordered 12/16/21 Ordered By: Ricardo Glasgow Admission Data Admit Date/Time: 12/15/21 14:21 Attending Provider: Ricardo Glasgow Admit Provider: Ricardo Glasgow Primary Care Provider: Kay Soliz
[2021-12-16] MEDS: BENZTROPINE MESYLATE 0.5 MG TAB PO SCH (08:48)
[2021-12-16] MEDS ORDERED: MULTIVITAMIN TAB PO SCH (09:00)
[2021-12-16] MEDS ORDERED: CHOLECALCIFEROL 1,000 UNITS 25 MCG TAB PO SCH (09:00)
[2021-12-16] MEDS ORDERED: NON-FORMULARY MEDICATION (Multivitamin Tablet) PO SCH (09:00)
[2021-12-16] MEDS ORDERED: ATENOLOL 50 MG TABLET PO SCH (09:00)
[2021-12-16] MEDS ORDERED: TOCOPHERYL, DL-ALPHA 100 UNITS CAP PO SCH (09:00)
[2021-12-16] MEDS ORDERED: SERTRALINE HCL 100 MG TABLET PO SCH (09:00)
[2021-12-17] MEDS ORDERED: SERTRALINE HCL 50 MG TABLET PO SCH (09:00)
== END 2021-12-16 11:32 | disposition home or self-care (01) ==
LOC: ASU 09:32 → 3E 09:32

== ENCOUNTER 2022-12-14 06:59 | Observation (INO) ==
--- NOTE | 2022-11-15 09:31 | PAT Medication Instructions ---
Medication Instructions Date of Service November 15, 2022 Home Medications Medication Instructions Recorded benztropine 1 mg tablet 0.5 mg PO BID #60 tabs 06/08/19 Wheeled Walker #1 ea 08/08/20 atenolol 50 mg tablet 50 mg PO QAM #30 tabs 06/25/22 atorvastatin 20 mg tablet (Lipitor) 20 mg PO HS #30 tabs 06/25/22 amoxicillin 500 mg tablet 2,000 mg PO ONCE PRN prophylaxis 08/06/22 #4 tabs meloxicam 15 mg tablet 15 mg PO DAILY #30 tabs 08/06/22 benztropine 1 mg tablet 0.5 mg PO BID alprazolam 0.25 mg tablet 0.25 mg PO UD PRN Anxiety cholecalciferol (vitamin D3) 25 mcg (1,000 unit) chewable tablet (Vitamin D3) 25 mcg PO QAM loxapine succinate 10 mg capsule 10 mg PO HS loxapine succinate 25 mg capsule 25 mg PO HS multivitamin 1 tab PO QAM sertraline 100 mg tablet 100 - 150 mg PO DIRECTED vitamin E 200 unit capsule 200 unit PO QAM atenolol 50 mg tablet 50 mg PO QAM atorvastatin 20 mg tablet (Lipitor) 20 mg PO HS amoxicillin 500 mg tablet 2,000 mg PO ONCE PRN prophylaxis meloxicam 15 mg tablet 15 mg PO DAILY Continue as directed amoxicillin 500 mg tablet 2,000 mg PO ONCE PRN prophylaxis (if needed) sertraline 100 mg tablet 100 - 150 mg PO DIRECTED alprazolam 0.25 mg tablet 0.25 mg PO UD PRN Anxiety (if needed) ASK your surgeon for instructions meloxicam 15 mg tablet 15 mg PO DAILY ASK your prescriber and surgeon loxapine succinate 10 mg capsule 10 mg PO HS loxapine succinate 25 mg capsule 25 mg PO HS STOP taking 2 weeks before surgery vitamin E 200 unit capsule 200 unit PO QAM DO NOT take the morning of surgery multivitamin 1 tab PO QAM cholecalciferol (vitamin D3) 25 mcg (1,000 unit) chewable tablet (Vitamin D3) 25 mcg PO QAM Take morning of surgery With a small sip of water, OTHERWISE NOTHING TO EAT OR DRINK AFTER MIDNIGHT: atenolol 50 mg tablet 50 mg PO QAM benztropine 1 mg tablet 0.5 mg PO BID Take evening before surgery benztropine 1 mg tablet 0.5 mg PO BID atorvastatin 20 mg tablet (Lipitor) 20 mg PO HS Other Notes If you have any questions please call us at [phone] or [phone] or [phone] or [phone]
--- NOTE | 2022-11-20 13:08 | Anesthesiology Consultation ---
Date of Service November 20, 2022 Assessment & Plan (1) Encounter for pre-operative examination: Plan - s/p L TKA, epidural at L4-L5 1 attempt + PNB. -untreatedbreast cancerby pt decision. Dx 2018 upon biopsy, pt declined any additional evaluation/intervention-no further surgery completed, no chemo or XRT. Case previously discussed with Dr. Solorzano who advised nothing further to be completed prior to surgery,consideration for GA vs neuraxial anesthesia given unknown disease state. Case reviewed again with Dr. Blanchard who is assigned as board physician DOS and he advised he agrees patient can proceed with surgery. - tremors: upper extremities bilat R>L. Chart Review Chart Review: Acceptable Risk for Surgery and Patient seen in Pre Admission Testing Teaching & Discussion Pre-Anesthesia Teaching/Discussion Notes: Instructed NPO after midnight before surgery, except medications with 15 cc of water. Medication instructions provided according to the PAT guidelines. History Surgery Operation Date: 12/14/22 08:10 Proposed Procedures p Right Total Knee Arthroplasty - Ricardo Glasgow, Height/Weight Height: 5 ft 4 in Weight: 87.997 kg Allergies Allergy/AdvReac Type Severity Reaction Status Date / Time No Known Allergies Allergy Verified 11/14/22 13:45 Medications Home Medications Medication Instructions Recorded Confirmed Last Taken benztropine 1 mg tablet 0.5 mg PO BID #60 tabs 06/08/19 11/14/22 12/14/21 07:55 Wheeled Walker #1 ea 08/08/20 09/04/22 Unknown alprazolam 0.25 mg tablet 0.25 mg PO UD PRN Anxiety 11/10/21 11/14/22 Unknown cholecalciferol (vitamin D3) 25 25 mcg PO QAM 11/10/21 11/14/22 12/01/21 07:30 mcg (1,000 unit) chewable tablet (Vitamin D3) loxapine succinate 10 mg capsule 10 mg PO HS 11/10/21 11/14/22 12/14/21 21:00 loxapine succinate 25 mg capsule 25 mg PO HS 11/10/21 11/14/22 12/14/21 21:00 multivitamin 1 tab PO QAM 11/10/21 11/14/22 12/08/21 08:00 sertraline 100 mg tablet 100 - 150 mg PO DIRECTED 11/10/21 11/14/2222 09:00 vitamin E 200 unit capsule 200 unit PO QAM 11/10/21 11/14/22 12/01/21 08:00 atenolol 50 mg tablet 50 mg PO QAM #30 tabs 06/25/22 11/14/22 Unknown atorvastatin 20 mg tablet (Lipitor) 20 mg PO HS #30 tabs 06/25/22 11/14/22 Unknown amoxicillin 500 mg tablet 2,000 mg PO ONCE PRN prophylaxis 08/06/22 11/14/22 Unknown #4 tabs meloxicam 15 mg tablet 15 mg PO DAILY #30 tabs 08/06/22 11/14/22 Unknown aspirin 81 mg capsule 81 mg PO QAM 11/20/22 11/20/22 Unknown Additional Notes: Pt was advised to check with surgeon and prescriber on aspirin 81 mg and this was written on provided medication instructions. Pt and her verbalized full understanding and agreement, denied additional questions, concerns or medications. Past Medical History Medical History (Updated 11/21/22 @ 09:35 by Sydnee Landry PA-C) Anxiety Breast cancer May 2018 > pt elected no treatment Depression Hyperlipidemia Hypertension controlled, stable per pt Schizophrenia Tardive dyskinesia Tremor Right side worse than left (Hands, feet) Patient denies h/o stroke, seizures, heart attack, heart failure, DM, blood clots or blood transfusions. Exercise / Class Metabolic Activity III < 4 Walking/Shop/Light housework (denies chest discomfort or shortness of breath with usual activities, ambulates with cane) Past Family History Family History Sister Breast cancer Aunt Breast cancer Mother Stroke Family history of diabetes mellitus Denies family history of Colon cancer Ovarian cancer Prostate cancer Myocardial infarction Past Surgical History Surgical History H/O removal of cyst Right middle finger History of tooth extraction Hx of breast biopsy left, cancer (2018) S/P cataract surgery R/L Status post left knee replacement Left TKA (12/15/21): SAB at L4-5 (x1 attempt) + PNB at [facility]. No issues noted per post-op anesthesia progress note. Past Anesthesia History No Hx of Anesthesia Complications and No Family Hx of Anesthesia Complications History of PONV No Hx of PONV and Hx of Motion Sickness (on airplane) Social History Smoking Status: Never smoker Do You Dip or Chew Tobacco: No Hx Alcohol Use: No Alcohol type: wine Hx Substance Use: No substance use type: does not use Review of Systems Patient denies chest pain, shortness of breath, dyspnea on exertion, snoring, witnessed apneas, reflux, fever, chills, cough, wheezing, or palpitations. Physical Exam Vital Signs Vitals BP 118/80 P 69 TEMP 97.3 SP02 94% on RA RESP 18 Physical Full cervical extension range of motion without pain TMD 3.5 finger breadths Mallampati Score 2 Dentition: removable partial front upper, crown; denies chipped or loose teeth or implants Lungs: normal respiratory effort. Clear throughout to auscultation, no adventitious breath sounds Cardiac: regular rate and rhythm, no murmurs noted Carotid arteries: negative bruit bilat Neuro: tremor upper extremities bilat, R>L Lab Results Anesthesia Preop Results Results Anesthesia Widget: WBC 5.12 K/ul (4.8-10.8) 11/20/22 Hgb 11.7 g/dl (12.0-16.0) L 11/20/22 Hct 35.7 % (37.0-47.0) L 11/20/22 Plt 257 K/uL (130-400) 11/20/22 Na 139 mmol/L (136-145) 11/20/22 K 4.1 mmol/L (3.5-5.1) 11/20/22 Cl 105 mmol/L (98-107) 11/20/22 CO2 26 mmol/L (21-32) 11/20/22 BUN 22 mg/dl (6-23) 11/20/22 Creat 0.79 mg/dl (0.6-1.2) 11/20/22 Glucose Level 100 mg/dl (70-99(Fasting)) H 11/20/22 PT 10.6 Seconds (9.0-12.0) 11/20/22 PTT 25.9 Seconds (21.0-31.0) 11/20/22 INR 1.0 (0.9-1.1) 11/20/22 Blood Type A Positive 11/20/22 Antibody Screen NEGATIVE 11/20/22 Testing Electrocardiogram Date: 11/20/22 NSR, rate 67 bpm RBBB Chest X-Ray Date: 11/20/22 No lines and tubes are seen. Cardiomegaly is noted. The lungs are clear. No evidence of pleural effusion or pneumothorax. IMPRESSION: No acute chest disease. Cardiomegaly is noted. COVID-19 Risk Screen Screening Information COVID-19 Screen Date: 11/20/22 Exposure 21 Days Family/Household +COVID Last 21 Days: No Exposure 10 Days Any COVID Exposure Last 10 Days: No Symptoms Last 10 Days Experienced COVID Sx Last 10 Days: No + COVID 0-90 Days COVID + in Last 0-90 Days: No
--- NOTE | 2022-12-13 13:35 | History & Physical Report ---
Date of Service December 13, 2022 Assessment & Plan (1) Osteoarthritis of right knee: We will proceed with a right total knee arthroplasty. Postoperatively she will be started on aspirin for DVT prophylaxis and kept overnight in the hospital for postop medical management. She plans to go to outpatient physical therapy at [facility] upon discharge. History of Present Illness Chief Complaint: Osteoarthritis of the right knee. Primary Care Provider: Kay Soliz MD Jodee is a pleasant 82-year-old female who I did a left knee replacement on about a year ago. She has done very well with that. Unfortunately, she is dealing with chronic worsening right knee pain. We have tried a year of conservative treatment including injections, anti-inflammatories, and activity modifications. She is still struggling with the right knee. After failing conservative treatment, she has elected proceed with a right total knee arthroplasty. . Allergies Allergy/AdvReac Type Severity Reaction Status Date / Time No Known Allergies Allergy Verified 11/14/22 13:45 Home Medications Medication Instructions Recorded Confirmed Type benztropine 1 mg tablet 0.5 mg PO BID #60 tabs 06/08/19 11/14/22 Rx Wheeled Walker #1 ea 08/08/20 09/04/22 Rx alprazolam 0.25 mg tablet 0.25 mg PO UD PRN Anxiety 11/10/21 11/14/22 History cholecalciferol (vitamin D3) 25 25 mcg PO QAM 11/10/21 11/14/22 History mcg (1,000 unit) chewable tablet (Vitamin D3) loxapine succinate 10 mg capsule 10 mg PO HS 11/10/21 11/14/22 History loxapine succinate 25 mg capsule 25 mg PO HS 11/10/21 11/14/22 History multivitamin 1 tab PO QAM 11/10/21 11/14/22 History sertraline 100 mg tablet 100 - 150 mg PO DIRECTED 11/10/21 11/14/22 History vitamin E 200 unit capsule 200 unit PO QAM 11/10/21 11/14/22 History atenolol 50 mg tablet 50 mg PO QAM #30 tabs 06/25/22 11/14/22 Rx atorvastatin 20 mg tablet (Lipitor) 20 mg PO HS #30 tabs 06/25/22 11/14/22 Rx amoxicillin 500 mg tablet 2,000 mg PO ONCE PRN prophylaxis 08/06/22 11/14/22 Rx #4 tabs meloxicam 15 mg tablet 15 mg PO DAILY #30 tabs 08/06/22 11/14/22 Rx aspirin 81 mg capsule 81 mg PO QAM 11/20/22 11/20/22 History Past Med/Surg History Medical History Anxiety Breast cancer May 2018 > pt elected no treatment Depression Hyperlipidemia Hypertension controlled, stable per pt Schizophrenia Tardive dyskinesia Tremor Right side worse than left (Hands, feet) Surgical History H/O removal of cyst Right middle finger History of tooth extraction Hx of breast biopsy left, cancer (2017) S/P cataract surgery R/L Status post left knee replacement Left TKA (12/15/21): SAB at L4-5 (x1 attempt) + PNB at [facility]. No issues noted per post-op anesthesia progress note. Family History Sister Breast cancer Aunt Breast cancer Mother Stroke Family history of diabetes mellitus Denies family history of Colon cancer Ovarian cancer Prostate cancer Myocardial infarction Social History Smoking Status: Never smoker Second Hand Exposure: Yes (father smoked); Hx Alcohol Use: No Hx Substance Use: No Preferred Language: Welsh Communication Ability: Effective Visual Impairment: No Limitations Hearing Ability: Normal Fabrication Machine Operator Required: No Beliefs That Will Affect Care: None marital status: Current Living Situation: Spouse current occupational status: retired current occupation: used to be a Homemaker Feels Safe at Home: Yes Childhood Exposure to Second-Hand Smoke: Yes Diet Comment: low carbs Dental Care, Regularly: Yes Physical Activity Frequency: Does not Exercise Seatbelt Use: always Sunscreen Use: Yes Assistive Devices: Glasses, Walker and Other Review of Systems All systems reviewed & are unremarkable except as noted in HPI & below. Physical Exam On physical examination of the right knee, she has a varus deformity. She is range of motion 0 to 120 degrees. She has no instability. She has pain of the distal femoral condyle.. Constitutional WD/WN, vitals as above Eyes PERRL, conjunctivae normal, anicteric sclerae ENMT external ear and nose normal, oropharynx normal Neck trachea midline, no thyromegaly Respiratory normal respiratory effort, lungs clear to auscultation Cardiovascular RRR, no murmur, no edema Gastrointestinal (Abdomen) normal bowel sounds, soft, nontender, no hepatosplenomegaly Skin no rashes, warm and dry Psychiatric A+Ox3, euthymic affect Results & Data Results & Data Laboratory Results . Diagnostic Findings X-rays of the right knee show advanced osteoarthritis with joint space narrowing, osteophyte formation, and [id number] circulation. PG Care Time/CCT Total # of Minutes Spent Total Time Spent with Patient: Total time spent is greater than 50% in coordination of care (as documented) at patient's floor/unit and/or counseling patient: Coding Level of Care Code None Diagnoses Osteoarthritis of right knee M17.11
[~2022-12-14 06:59] MED LIST changes: -BUPIVACAINE 0.5 % 5 MG/1 ML PF 10ML VIAL ONE; -Ketorolac (*for OR use only*) 30 MG, dexAMETHasone 4 MG, KETAMINE HCL (**OR use only) 1... INFIL SCH; -LR 15ML/HR IV SCH; +LR 500ML BOLUS, THEN 15ML/HR IV SCH; +ORTHO JOINT MIX INFIL SCH; +TRANEXAMIC ACID 1,000 MG **IV Pre-op IV SCH; +dexAMETHasone 4 MG TAB PO SCH
[2022-12-14] MEDS ORDERED: BUPIVACAINE 0.5 % 5 MG/1 ML PF 10ML VIAL ONE (07:13)
[2022-12-14] MEDS ORDERED: ROPIVACAINE 0.5% 5 MG/ML 30 ML VIAL ONE (07:13)
[2022-12-14] MEDS ORDERED: LIDOCAINE 2% MPF LOCAL 5 ML VIAL ONE (07:51)
[2022-12-14] MEDS ORDERED: PROPOFOL IV EMULSION 10 MG/ML 20 ML VIAL IV ONE ×2 (07:51→08:13)
[2022-12-14] MEDS ORDERED: MIDAZOLAM HCL 1 MG/ML 2ML VIAL ONE (07:51)
[2022-12-14] MEDS ORDERED: fentaNYL citrate PF 100 MCG/2 ML VIAL ONE (07:51)
--- NOTE | 2022-12-14 08:10 | History & Physical Bridge Note ---
Date of Service December 14, 2022 History & Physical Bridge Note I have examined the patient, reviewed the History & Physical and in the interval since the performance of the History & Physical I have noted the following changes of clinical significance: no changes noted
[2022-12-14] MEDS ORDERED: ORTHO JOINT ANESTHETIC ONE (08:37)
[2022-12-14] MEDS ORDERED: ePHEDrine sulfate 50 MG/ML SYR ONE (09:45)
--- NOTE | 2022-12-14 10:35 | Operative Report ---
PG Post Operative Report Pre & Post Diagnosis Operation Date: 12/14/22 09:25 Pre-Op Diagnosis: DJD Right Knee Post-Op Diagnosis: DJD Right Knee I identified the patient and participated in the time-out.: Yes Procedure Operation Date: 12/14/22 09:25 Actual Procedures p Right Total Knee Arthroplasty(Right) - Ricardo Glasgow DO Surgeon Ricardo Glasgow, Agronomist Ricardo Rehman, PSA Estimated Blood Loss 30 Findings Consistent with Post-Op Diagnosis Specimens Right femoral tibial bone Description of Procedure Implants used: I used a Yesenia Persona total knee arthroplasty system with a size 9 narrow PS femur, D tibia with a 30 mm stem extension, 28 oval patella, and a size 12 CPS polyethylene bearing. All components were cemented in place with Biomet cement. Jodee arrived [facility] for the above procedure. She was seen in the preoperative holding area and the operative extremity was identified and signed. She was given a preoperative antibiotic, TXA, a spinal anesthetic and an adductor nerve block. She was taken back to the operating room and laid on the table in supine position. She was given basic sedation. The operative knee was then prepped and draped in sterile fashion. A timeout was done, and the patient and the operative extremity was properly identified. A midline incision was made directly over the patella. Dissection was taken down to the extensor mechanism. A midvastus arthrotomy was used. The medial retinaculum was released and the fat pad was mostly excised. The knee was flexed and the ACL, PCL, and meniscus were removed. A drill was sent down the center of the femoral canal followed by an intramedullary baldo. Off that blado a distal femoral cutting block was placed. 9 mm was resected off the distal femur at 5 of valgus. A posterior referencing AP sizing guide was then placed on the distal femur. The femur measured to be a size 9. 2 drill holes were placed in 3 of external rotation. A 4-in-1 cutting block was then impacted into place. Anterior, posterior, and chamfer cuts were then made. The proximal tibia was then exposed. An external tibial alignment guide was placed. A tibial cut guide was then anchored in place and the proximal tibia was then resected. The posterior aspect of the knee was then opened up and any additional meniscus fragments and osteophytes were removed. The tibia measured to be a size D. The tibial plate was then placed in the appropriate rotation and the tibia was drilled and punched. Trial components were then placed. I used a size 12 CPS polyethylene insert. The knee was brought through a full range of motion and felt to be stable. The peg holes for the femoral component were then drilled. The patella was then everted and 9 mm was resected off the posterior aspect of the patella. The patella measured to be a size 28 oval. 3 peg holes were then drilled. A trial patella was placed. The knee was once again brought through a full range of motion and felt to be stable. Trial components were then removed. The surrounding soft tissues were injected with 100 cc of an orthopedic pain control cocktail. All components were then cemented into place with Biomet cement. The final polyethylene insert was then snapped into place. Once cement was dry the tourniquet was deflated. Hemost asis was obtained. A dilute betadyne lavage was then done for 3 minutes. The joint was then irrigated with normal saline solution. The midvastus arthrotomy was then closed with #1 Vicryl suture. The skin was closed with 2-0 Vicryl, 3- 0V lock suture, and isa. A soft compressive dressing was placed. She was then transferred to a hospital bed and taken to the postanesthesia care unit in stable condition. She tolerated the procedure well. Ricardo Rehman PA-C, was present for the entire procedure. He was critical for patient positioning, prepping, draping, retraction exposure, wound closure and application of sterile dressing. I attest to the content of the Intraoperative Record and any orders documented therein. Any exceptions are noted below.
--- NOTE | 2022-12-14 11:46 | XRay Report ---
RIGHT KNEE 2 VIEWS History: Right total knee arthroplasty. Degenerative arthritis. Postop. FINDINGS: The patient is status post a right total knee arthroplasty. The hardware is intact. No frac ture or dislocation. Skin isa are in place. IMPRESSION: Right total knee arthroplasty. No evidence for hardware complication. ACT 112: Negative or not required by law. Electronically signed by: Last Marin M.D. 12/14/2022 11:44 AM
--- NOTE | 2022-12-14 12:01 | Anesthesiology Progress Note ---
Date of Service December 14, 2022 Anesthesia Post Procedure Vital Signs Vital Signs: Temp Pulse Pulse Resp BP Pulse Ox O2 Del Method 12/14/22 11:50 61 16 117/67 100 Nasal Cannula 12/14/22 11:40 56 L 13 110/63 100 Nasal Cannula 12/14/22 11:30 58 L 21 108/61 100 Nasal Cannula 12/14/22 11:20 71 22 108/60 100 Nasal Cannula 12/14/22 11:10 68 24 103/59 L 94 Room Air 12/14/22 11:00 36.1 C L 70 20 112/58 L 95 Room Air 12/14/22 07:44 36.5 C 70 20 158/86 H 95 Room Air O2 Flow Rate 12/14/22 11:50 2 12/14/22 11:40 2 12/14/22 11:30 2 12/14/22 11:20 2 12/14/22 11:10 12/14/22 11:00 12/14/22 07:44 Transfer of Care Handoff Completed per policy Notes Mental Status: alert / awake / arousable and participated in evaluation Patient Amnestic to Procedure: Yes Nausea / Vomiting: adequately controlled Pain: adequately controlled Airway Patency, RR, SpO2: stable & adequate BP & HR: stable & adequate Hydration State: stable & adequate Anesthetic Complications: no major complications apparent and Pt Satisfied with anesthetic care
[2022-12-14] MEDS ORDERED: NALOXONE HCL 0.4 MG/1 ML VIAL/CARP IV PRN (12:19)
[2022-12-14] MEDS ORDERED: HYDROmorphone INJ 0.5 MG/0.5 ML SYR IV PRN (12:19)
[2022-12-14] MEDS ORDERED: METOCLOPRAMIDE HCL INJ 5 MG/ML 2 ML VIAL IV PRN (12:19)
[2022-12-14] MEDS ORDERED: oxyCODONE HCL IR 5 MG TAB (IMMEDIATE RELEASE) PO PRN (12:19)
[2022-12-14] MEDS ORDERED: ALPRAZolam 0.25 MG TABLET PO PRN (12:19)
[2022-12-14] MEDS ORDERED: MAGNESIUM HYDROXIDE SUSP 30 ML UDC PO PRN (12:19)
[2022-12-14] MEDS ORDERED: ONDANSETRON INJ 2 MG/ML 2 ML VIAL IV PRN (12:19)
[2022-12-14] MEDS ORDERED: bisacodyL 10 MG SUPP PR PRN (12:19)
[2022-12-14] MEDS: SODIUM CHLORIDE 0.9% 1000ML 1,000 ML IV SCH ×2 (13:09→22:47)
[2022-12-14] MEDS: KETOROLAC TROMETHAMINE 15 MG/ML VIAL IV SCH ×2 (13:09→19:22)
[2022-12-14] MEDS: ACETAMINOPHEN 500 MG TAB PO SCH ×2 (14:31→22:18)
[2022-12-14] MEDS: ceFAZolin 2000MG 2,000 MG/15 ML SYR IV SCH (17:15)
[2022-12-14] MEDS: ASPIRIN 81 MG ECTAB PO SCH (19:24)
[2022-12-14] MEDS: BENZTROPINE MESYLATE 0.5 MG TAB PO SCH (19:26)
[2022-12-14] MEDS: DOCUSATE SODIUM 100 MG CAP PO SCH (19:26)
[2022-12-14] MEDS ORDERED: ATORVASTATIN 20 MG TAB PO SCH (21:00)
[2022-12-14] MEDS ORDERED: SENNA 8.6 MG TAB PO SCH (21:00)
[2022-12-14] MEDS ORDERED: LOXAPINE SUCCINATE PO SCH ×2 (21:15)
[2022-12-15] MEDS: KETOROLAC TROMETHAMINE 15 MG/ML VIAL IV SCH ×2 (00:58→08:25)
[2022-12-15] MEDS: ceFAZolin 2000MG 2,000 MG/15 ML SYR IV SCH (00:59)
[2022-12-15] MEDS: ACETAMINOPHEN 500 MG TAB PO SCH (06:05)
--- NOTE | 2022-12-15 07:40 | Orthopedic Progress Note ---
Date of Service December 15, 2022 Assessment & Plan (1) Status post right knee replacement: Overall she is doing very well. She is not having much pain in the right knee. She will be seen by physical therapy today for ambulation and range of motion exercises. She is on aspirin for DVT prophylaxis. She can be discharged home later today. She will follow-up with orthopedics in 2 weeks. Subjective Great toe (examined at bedside this morning. Overall she is doing very well. She is not having much pain in the right knee. She has been up and ambulating to the bathroom. She has no complaints.. Review of Systems All systems reviewed & are unremarkable except as noted in HPI & below. Physical Exam On physical examination of the right knee, the dressing is clean and dry. Her leg is out full extension. She has active dorsiflexion plantarflexion of her right ankle.. Results & Data Results & Data Laboratory Results . Diagnostic Findings Postoperative x-rays of the right knee show the prosthesis to be in anatomic alignment without any evidence of fracture, dislocation, or loosening.. PG Care Time/CCT Total # of Minutes Spent Total Time Spent with Patient: Total time spent is greater than 50% in coordination of care (as documented) at patient's floor/unit and/or counseling patient: Coding Level of Care Code 28703 Post Operative Follow-Up Diagnoses Status post right knee replacement Z96.651
--- NOTE | 2022-12-15 07:41 | Discharge Summary ---
Date of Service December 15, 2022 Admission HPI (Per Admitting) Jodee is a pleasant 82-year-old female who I did a left knee replacement on about a year ago. She has done very well with that. Unfortunately, she is dealing with chronic worsening right knee pain. We have tried a year of conservative treatment including injections, anti-inflammatories, and activity modifications. She is still struggling with the right knee. After failing conservative treatment, she has elected proceed with a right total knee art hroplasty. . Admission Exam (Per Admitting) On physical examination of the right knee, she has a varus deformity. She is range of motion 0 to 120 degrees. She has no instability. She has pain of the distal femoral condyle.. Principal Diagnosis Same as "Discharge Diagnosis" noted below under Discharge Instructions. Discharge Exam On physical examination of the right knee, the dressing is clean and dry. Her leg is out full extension. She has active dorsiflexion plantarflexion of her right ankle.. Discharge Data Procedures Performed Operation Date: 12/14/22 09:25 Actual Procedures p Right Total Knee Arthroplasty(Right) - Ricardo Glasgow DO Ordered Studies 12/14/22 05:00 US - OR guided needle placemen Routine Hospital Course (1) Status post right knee replacement: On December 14, [address] [facility] and underwent a right knee replacement without complication. She had a spinal anesthetic. Postoperatively she was started on aspirin for DVT prophylaxis and transferred to the general orthopedic floors. Her hospital course was uneventful. On postop day #1, her vital signs were stable and her pain was well controlled. She was participating well with physical therapy doing ambulation and range of motion exercises. She was then discharged home. She will follow-up with orthopedics in 2 weeks. PG Care Time/CCT Total # of Minutes Spent Total Time Spent with Patient: Total time spent is greater than 50% in coordination of care (as documented) at patient's floor/unit and/or counseling patient: Discharge Plan Discharge Items Patient Disposition: Home - Home Health Services Reason For Visit: DJD Right Knee Discharge Diagnosis: same as above Activity: Per Instructions section Non-emergency contact: Surgeon Call non-emergency contact if: your temperature is above 101.5, your wound has increased redness and your wound has increased drainage Follow-up/Referrals: Kay Soliz MD [Primary Care Provider] - Diet: Regular Addtl Attending Provider Instructions: Activity and Therapy Recommendations: * If you are using [facility] then therapy will be provided at your home until they feel you have accomplished all of your goals. * If you are using [facility] then Physical Therapy will be provided until they feel you are ready to start Outpatient Physical Therapy. * If you are not using home therapy then Outpatient Physical Therapy should start about 3-5 days from your day of surgery. Therapy will last about 6-10 weeks * It is important not to put a pillow under your knee when you are relaxing or sleeping. It is just as important to make sure you are getting your knee perfectly straight as it is to regain your knee bend. * You were shown a series of exercises in the hospital. Do these exercises three times each day including the exercises you were shown in physical therapy. * Get up and walk several times each day. For the first four weeks, try not to stand or walk for more than one hour at a time. If you do stand or walk for more than one hour, you will not hurt anything, but your leg will likely swell. * As you feel comfortable, you may change from the walker or crutches to a cane and then to independent walking. Medications: * Narcotic You will likely be sent home from the hospital with a prescription for the narcotic pain medication that worked best throughout your stay. * Aspirin Most patients will be required to take Aspirin 81mg twice a day for 6 weeks after surgery. This is obtained [id number] and a prescription is not necessary. * Other medications may be prescribed for specific circumstances. If you have any questions, please call the office at . * Resume previous home medications unless otherwise instructed TEDs/Elastic Stockings: The white elastic stockings help limit swelling and prevent blood clots from forming in your legs.~ The more you wear them, the more they work. Wear them for six weeks. Dressing Care: The dressing can be changed after physical therapy on postop day #1. Daily dry dressing changes for a few days, especially if the incision is still draining some. If the incision is not draining then you may leave the isa open to air. If there is a little bit of drainage or if the isa are getting stuck on your clothing then cover the incision with a dry dressing. The isa will be removed at your 2 week follow-up appointment. Showering: You may shower 5 days from the day of surgery as long as the incision is no longer draining. You may shower with the isa exposed. Let soapy water run over the isa and pat them dry. Do not scrub or soak the incision. Things To Watch For: * Drainage from the incision site that occurs more than one week after your surgery. * Increased redness at the incision site. * Fever above 102 degrees Fahrenheit. * Unusual chest pain or shortness of breath. * Call [facility] at with any of the above problems Follow-Up Visit: Follow-up with Dr. Glasgow's PA (Ricardo Rehman) 2-3 weeks after your day of surgery. He will remove your isa and answer any questions. If you have any additional questions or concerns, Dr Glasgow is usually in the office at the same time and will be available An appointment was probably scheduled when you signed-up for surgery in the office. If you have any questions call Office Instructions: More detailed instructions as well as Frequently Asked Questions were provided in a folder by our office when you signed-up for surgery. Please review these instructions when you get home. If you have any further questions or concerns, please feel free to call the office at [phone] Pending Studies at Discharge: No Stand-Alone Forms: [facility], Sm[facility] Cessation Medications and DC Order Prescriptions: New aspirin 81 mg tablet,delayed release (DR/EC) 81 mg PO BID Qty: 60 0RF oxycodone-acetaminophen 5-325 mg tablet 1 tab PO Q6H PRN (Reason: pain) Qty: 30 0RF Continued atenolol 50 mg tablet 50 mg PO QAM Qty: 30 5RF atorvastatin [Lipitor] 20 mg tablet 20 mg PO HS Qty: 30 5RF benztropine 1 mg tablet 0.5 mg PO BID Qty: 60 2RF (DME) Wheeled Walker Misc See Rx Instructions .MEDSUPPLY Qty: 1 0RF Rx Instructions: As directed amoxicillin 500 mg tablet 2,000 mg PO ONCE PRN (Reason: prophylaxis) Qty: 4 3RF Rx Instructions: ONE HOUR PRIOR TO DENTAL PROCEDURE(VERIFIED PAT CALL 11/14/22) meloxicam 15 mg tablet 15 mg PO DAILY Qty: 30 3RF aspirin 81 mg Capsule 81 mg PO QAM multivitamin Tablet 1 tab PO QAM vitamin E 200 unit Capsule 200 unit PO QAM cholecalciferol (vitamin D3) [Vitamin D3] 25 mcg (1,000 unit) Tablet,Chewable 25 mcg PO QAM loxapine succinate 25 mg capsule 25 mg PO HS sertraline 100 mg tablet 100 - 150 mg PO DIRECTED Rx Instructions: 100 - 150 mg PO alternating every other day, 100 mg one day, 150 mg the next day.; (VERIFIED PAT CALL 11/14/22) alprazolam 0.25 mg tablet 0.25 mg PO UD PRN (Reason: Anxiety) loxapine succinate 10 mg capsule 10 mg PO HS Admission Data Admit Date/Time: 12/14/22 11:16 Attending Provider: Ricardo Glasgow Admit Provider: Ricardo Glasgow Primary Care Provider: Kay Soliz
[2022-12-15] MEDS ORDERED: dexAMETHasone 4 MG TAB PO SCH (08:00)
[2022-12-15] MEDS: BENZTROPINE MESYLATE 0.5 MG TAB PO SCH (08:25)
[2022-12-15] MEDS: DOCUSATE SODIUM 100 MG CAP PO SCH (08:25)
[2022-12-15] MEDS: ASPIRIN 81 MG ECTAB PO SCH (08:25)
[2022-12-15] MEDS ORDERED: TOCOPHERYL, DL-ALPHA 100 UNITS CAP PO SCH (09:00)
[2022-12-15] MEDS ORDERED: CHOLECALCIFEROL 1,000 UNITS 25 MCG TAB PO SCH (09:00)
[2022-12-15] MEDS ORDERED: MULTIVITAMIN TAB PO SCH (09:00)
[2022-12-15] MEDS ORDERED: ATENOLOL 50 MG TABLET PO SCH (09:00)
[2022-12-15] MEDS ORDERED: SERTRALINE HCL 100 MG TABLET PO SCH (09:00)
[2022-12-15] MEDS ORDERED: NON-FORMULARY MEDICATION (Multivitamin Tablet) PO SCH (09:00)
[2022-12-16] MEDS ORDERED: SERTRALINE HCL 100 MG TABLET PO SCH (09:00)
== END 2022-12-15 10:58 | disposition home health service (06) ==
LOC: ASU 06:59 → 3E 06:59